=== PATIENT | male | born 1940 | race Caucasian/White ===

== ENCOUNTER 2019-09-21 10:34 | Emergency (ER) | payer MEDICARE, SELFPAY ==
--- NOTE | ~2019-09-21 | XR_ITS ---
XR abdomen/kub 1V DATE: 09/21/2019 11:57 INDICATION: Left flank pain TECHNIQUE: AP projection, 2 views COMPARISON: 09/21/2019 CT abdomen pelvis FINDINGS: There is a small faint calcified calculus overlying the upper pole of the right kidney base d upon comparison with the current 09/21/2019 CT abdomen pelvis examination. Other urinary tract stone s are radiographically occult. The psoas shadows are intact. No visceromegaly is evident. No evidence of bowel obstruction. Diffuse idiopathic skeletal hyperostosis of the thoracolumbar spine. IMPRESSION: Faintly calcified nonobstructing upper pole right renal calculus; other renal and left ur eter vesicle junction calculi are essentially occult radiographically Reviewed, dictated and finalized at [facility]. Reviewed, dictated and finalized at [facility]. IMPRESSION: Faintly calcified nonobstructing upper pole right renal calculus; o ther renal and left ureter vesicle junction calculi are essentially occult radi ographically
--- NOTE | ~2019-09-21 | CT_ITS ---
EXAMINATION: CT abdomen pelvis wo con DATE: 09/21/2019 11:54 INDICATION: Left flank pain TECHNIQUE: Computed tomography (CT) of the abdomen and pelvis was performed without intravenous contr ast. Automated exposure control and iterative reconstruction technique were employed. Exam dose: 540 .63 mGy-cm total exam DLP. COMPARISON: 09/21/2019 KUB 01/04/2017 CT abdomen pelvis FINDINGS: There is mild discoid atelectasis and/or scarring at the lung bases. Mild cardiomegaly. No pericardial or pleural effusion. There is a moderate sized hiatal hernia. There are multiple small stones in the dependent aspect of the gallbladder. The gallbladder wall does not appear abnormally thickened. There is no pericholecystic fluid. There may be minimal pericholecy stic stranding. Consider gallbladder ultrasound for further evaluation as clinically appropriate. No bile duct or pancreatic duct dilatation. No hepatic space-occupying mass lesion is detected. Normal splenic size. No pancreatic mass lesion or calcification. No adrenal mass lesion. There are several nonobstructing upper pole right renal stones, the largest approximately 4 mm. There is a 3.5 mm nonobstructing left stone and several additional small punctate nonobstructing left kidney stones. There is a 4 mm obstructing left ureterovesical junction stone with mild left hydroureteronephrosis. No right ureteral calculus. The bilateral renal and left ureterovesical junction stones are largely radiographically very faint o r occult. There is prostate enlargement and multiple prostate calcifications. The urinary bladder is relatively evacuated; the urinary bladder wall appears mildly thickened, likely due to bladder outlet obstructi on, possibly due to in part to the evacuation. Normal caliber of the abdominal aorta. No intraperitoneal or retroperitoneal or pelvic mass lesion or adenopathy or ascites. Is evidence of bilateral inguinal herniorrhaphy. There are numerous diverticula of the sigmoid and descending colon and to a lesser extent right colon ; no CT evidence of diverticulitis. No bowel obstruction, bowel wall thickening, pneumatosis or intra peritoneal free air. There is diffuse idiopathic hyperostosis of the thoracic and lumbar spine. Diffuse osteopenia. IMPRESSION: 4 mm obstructing left ureterovesical junction calculus with mild left hydroureteronephro sis Bilateral nonobstructive nephrolithiasis Diverticulosis of left and right colon Moderate sized hiatal hernia Mild cardiomegaly Cholelithiasis Reviewed, dictated and finalized at [facility]. Reviewed, dictated and finalized at [facility]. IMPRESSION: 4 mm obstructing left ureterovesical junction calculus with mild l eft hydroureteronephrosis Bilateral nonobstructive nephrolithiasis Diverticulosis of left and right colon Moderate sized hiatal hernia Mild cardiomegaly Cholelithiasis
[2019-09-21 10:39] VITALS: BP 181/93; PULSE 60; RESP 18; TEMP 36.7; O2SAT 100
--- NOTE | 2019-09-21 10:47 | ED.ABDPAIN ---
HPI - Abdominal Pain General Chief Complaint: Abdominal Pain Stated Complaint: lt flank pain Time Seen by Provider: 09/21/19 10:39 Source: patient Mode of arrival: ambulatory Limitations: no limitations History of Present Illness HPI narrative: This patient is an 79 year old male who presents for evaluation of left flank pain. He states he woke up with pain to left back at 430 am this morning. He states his pain has been constant and he is having associated nausea and vomiting. He has been having frequent urge to urinate. HE denies hematuria or darker urine. He has been talking to his friends and he states his pain seems similar to his friends with kidney stones. He denies history of kidney stone. He does reports history of PE 2 years ago and he takes a daily baby aspirin. Related Data Allergies Allergy/AdvReac Type Severity Reaction Status Date / Time amoxicillin Allergy Mild Nausea and Verified 09/21/19 10:45 Vomiting clavulanic acid Allergy Mild Nausea and Verified 09/21/19 10:45 Vomiting Review of Systems Review of Systems: All systems reviewed & are unremarkable except as noted in HPI and below Constitutional: Constitutional: Denies chills and Denies fever(s) Gastrointestinal: Gastrointestinal: Reports abdominal pain, Denies constipation, Denies diarrhea, Reports nausea and Reports vomiting Genitourinary: Genitourinary: Denies hematuria, Denies dysuria and Denies urinary frequency Musculoskeletal: Musculoskeletal: Reports back pain PMFSH Past Medical History Medical History (Updated 09/21/19 @ 13:47 by Karyna Hawthorne MD) Hyperlipidemia Surgical History Surgical History (Updated 09/21/19 @ 10:47 by Karyna Hawthorne MD) H/O hernia repair History of bilateral knee replacement History of tonsillectomy Social History Social History (Updated 09/21/19 @ 10:48 by Karyna Hawthorne MD) Smoking status: Former smoker Alcohol intake: current Alcohol use details: occasional Substance use: never Exam Narrative: Exam Narrative: GENERAL: Well-appearing, well-nourished, and in no acute distress. HEAD: Normocephalic, atraumatic EYES: PERRLA and EOMI, conjunctiva clear without discharge THROAT:Mucous membranes moist, Oropharynx normal without erythema, exudate, peritonsillar swelling or fluctuance NECK: Supple, without lymphadenopathy or mass RESPIRATORY: No respiratory distress, Airway patent, Respirations non-labored, Clear to auscultation without rales, rhonchi or wheeze HEART: Regular rate and rhythm. No murmur heard. Normal peripheral pulses. ABDOMEN: Soft, nontender, nondistended, normal active bowel sounds. No masses. No rebound or guarding, No organomegaly. EXTREMITIES: No edema, normal strength with full range of motion. SKIN: Warm, dry, normal color without rash NEURO: Alert and oriented x3. CN 2-12 grossly intact. No focal deficits. PSYCH: Normal mood and affect. Course Reevaluation(s) Reevaluation #1: I Discussed with patient and labs and CT. He states his pain has almost gone. He was given discharge instructions. Date: 09/21/19 Time: 13:45 Vital Signs Vital signs: Vital Signs Temperature 98.0 F 09/21/19 10:39 Pulse Rate 60 09/21/19 10:39 Respiratory Rate 18 09/21/19 10:39 Blood Pressure 181/93 H 09/21/19 10:39 Pulse Oximetry 100 09/21/19 10:39 Temperature 98.0 F 09/21/19 10:39 Pulse Rate 61 09/21/19 13:56 Respiratory Rate 18 09/21/19 13:56 Blood Pressure 154/80 H 09/21/19 13:56 Pulse Oximetry 100 09/21/19 13:56 MDM - Abdominal Pain Lab Data Attestation: I reviewed the patient's lab results. Result diagrams: 09/21/19 10:53 09/21/19 10:53 Labs: Lab Results 09/21/19 09/21/19 09/21/19 Range/Units 10:53 10:53 11:29 WBC 4.9 (4.5-10.0) K/mm3 RBC 4.51 L (4.6-6.20) M/mm3 Hgb 14.1 (14.0-18.0) g/dL Hct 42.8 (42.0-52.0) % MCV 94.9 (80-100) fl MCH 31.3
[2019-09-21] MEDS: SODIUM CHLORIDE 0.9% IV 500 ML 999 ML IV CONT (10:59)
[2019-09-21 11:11] LABS: Basophils Absolute Auto 0.1 K/mm3 (0.0-0.1); Basophils Percent Auto 1.2 % (0.2-1.2); Eosinophils Absolute Auto 0.2 K/mm3 (0-0.3); Eosinophils Percent Auto 3.9 % (0-4.4); Hematocrit 42.8 % (42.0-52.0); Hemoglobin 14.1 g/dL (14.0-18.0); Immature Granulocyte Absolute 0.02 K/mm3 (0.00-0.031); Immature Granulocyte Percent A 0.4 % (0-0.5); Lymphocytes Absolute Auto 0.75 K/mm3 (0.9-3.2); Lymphocytes Percent Auto 15.2 % (18.3-44.2); Mean Corpuscular HGB Conc 32.9 g/dl (32-36); Mean Corpuscular Hemoglobin 31.3 pg (26-34); Mean Corpuscular Volume 94.9 fl (80-100); Mean Platelet Volume 9.9 fl (7.4-10.4); Monocytes Absolute Auto 0.5 K/mm3 (0.1-0.6); Neutrophils Absolute Auto 3.4 K/mm3 (1.3-6.7); Neutrophils Percent Auto 69.3 % (45.5-73.1); Platelet Count Result 162 k/mm3 (150-375); Red Blood Count 4.51 M/mm3 (4.6-6.20); Red Cell Distribution Width 13.7 % (11.5-14.5); White Blood Count 4.9 K/mm3 (4.5-10.0)
[2019-09-21 11:38] LABS: Alanine Aminotransferase 15 U/L (4-50); Albumin Level 4.1 g/dL (3.5-5.1); Alkaline Phosphatase 62 U/L (38-126); Anion Gap 13.4 mmol/L (7-16); Aspartate Amino Transferase 19 U/L (17-59); Bilirubin,Total 0.5 mg/dL (0.2-1.3); Blood Urea Nitrogen 17 mg/dL (9-20); Calcium 8.6 mg/dL (8.4-10.2); Carbon Dioxide 23 mmol/L (22-30); Chloride 107 mmol/L (98-107); Estimated CRCL calculation 52 ml/min; Estimated Glomerular Filt Rate 58; Glucose 132 mg/dL (75-110); Lipase 34 U/L (23-300); Potassium 4.4 mmol/L (3.4-5.0); Sodium 139 mmol/L (137-145)
[2019-09-21 11:44] LABS: Add Urine Microscopic? YES; Appearance Urine Clear (Clear); Bilirubin Urine Negative (Negative); Blood Urine 3+ (Negative); Color Urine Yellow (Yellow); Glucose Urine UA Negative (Negative); Ketones Urine Negative (Negative); Leukocyte Esterase Ur Negative LEU/UL (Negative); Mucus Urine Rare /lpf; Nitrate Urine Negative (Negative); Protein Urine 2+ mg/dL (Negative); RBC Urine 21-50 /hpf (0-2); Squamous Epithelial Cell Urine Rare /hpf (Few)
[2019-09-21 11:45] LABS: Specific Grav Ur 1.032 (1.001-1.035)
[2019-09-21 12:21] VITALS: BP 176/95; PULSE 52; RESP 18; O2SAT 100
[2019-09-21] MEDS: TAMSULOSIN HCL 0.4 MG CAPSULE PO (12:49)
[2019-09-21] MEDS: KETOROLAC 30 MG/ML VIAL (*BKC) IV PUSH (12:49)
[2019-09-21 13:56] VITALS: BP 154/80; PULSE 61; RESP 18; O2SAT 100
== END 2019-09-21 13:58 | disposition home or self-care (01) ==
PROVIDERS: Emergency Provider General Practice; PCP Internal Medicine
DX: N13.2 Hydronephrosis with renal and ureteral calculous obstruction (principal); K80.20 Calculus of gallbladder without cholecystitis without obstruction; E78.5 Hyperlipidemia, unspecified; Z96.653 Presence of artificial knee joint, bilateral; Z87.891 Personal history of nicotine dependence; K57.90 Diverticulosis of intestine, part unspecified, without perforation or abscess without bleeding; I51.7 Cardiomegaly; K44.9 Diaphragmatic hernia without obstruction or gangrene
CPT/HCPCS: 36415; 74018; 74176; 80053; 81001; 83690; 85025; 96361; 96374; 99284; A9270; J1885; J7040

== ENCOUNTER → 2020-11-21 08:01 | Outpatient (CLI) | payer MEDICARE, SELFPAY ==
--- NOTE | ~2020-11-21 | MR_ITS ---
EXAMINATION: MR lumbar spine wo con EXAM DATE: 11/21/2020 08:41 INDICATION: Radiculopathy lumbar region. Lbp s/p twisting inj playing golf x 1 mo. TECHNIQUE: Multi-sequential, multiplanar MR images of the lumbar spine were obtained without contrast . Sagittal T1, T2, T2 fat saturation images. Axial T2 weighted images. Comparison is made to prior examination from 07/10/2011. FINDINGS: Mild to moderate disc disease from T11 through L5. Bridging endplate osteophytes from L4 th rough the lower thoracic spine or higher. The conus medullaris terminates at the L1/2 level and has n ormal signal intensity and morphology. Mild to moderate loss of the L2 vertebral body height, mild d iffuse loss of the other vertebral body heights. Mild edema at the inferior endplate on the left side of L2 vertebral body could indicate that this mild to moderate compression fracture has acute or sub acute component. There is 2-3 mm anterolisthesis L4 on L5. No spondylolysis suspected. 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 Level by level evaluation: T11-12: This level is fused. Facet arthropathy: Fused. Neural foraminal stenosis: No stenosis. Central canal stenosis: No stenosis. T12-L1: Partially fused Facet arthropathy: Partially fused. Neural foraminal stenosis: Mild left. Central canal stenosis: No stenosis. L1-L2: There is a mild to moderate diffuse disc bulge. Facet arthropathy: Moderate . Ligamentum flavum enlargement. Neural foraminal stenosis: Mild to moderate left, mild right. Central canal stenosis: Mild. L2-L3: There is a mild to moderate diffuse disc bulge. Facet arthropathy: Moderate to severe . Ligamentum flavum enlargement. Neural foraminal stenosis: Mild to moderate left. Central canal stenosis: Mild. L3-L4: There is a mild to moderate diffuse disc bulge. Facet arthropathy: Moderate to severe. Neural foraminal stenosis: Moderate left, mild to moderate right. Central canal stenosis: Mild. L4-L5: There is a moderate diffuse disc bulge. Facet arthropathy: Severe . Ligamentum flavum enlargement. Neural foraminal stenosis: Moderate to severe bilateral. Central canal stenosis: Severe. L5-S1: There is a mild to moderate diffuse disc bulge. Facet arthropathy: Severe. Neural foraminal stenosis: Moderate right, mild to moderate left. Central canal stenosis: Mild to moderate. Progression in the lumbar spondylosis compared to 2012. IMPRESSION: 1. L2 mild to moderate compression fracture, could have acute or subacute component given edema. 2. L4-5 grade 1 anterolisthesis, severe central canal stenosis. Less spondylosis other levels. 3. Right paraspinal complex cystic appearing mass with interval decrease in size. Would favor periph eral nerve sheath tumor or other benign histology. Reviewed, dictated and finalized at [facility]. IMPRESSION: 1. L2 mild to moderate compression fracture, could have acute or subacute comp onent given edema. 2. L4-5 grade 1 anterolisthesis, severe central canal stenosis. Less spondylos is other levels. 3. Right paraspinal complex cystic appearing mass with interval decrease in si ze. 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
== END ==
PROVIDERS: PCP Internal Medicine; Visit Provider Nurse Practitioner Adult Health
DX: M54.16 Radiculopathy, lumbar region (principal)
CPT/HCPCS: 72148

== ENCOUNTER 2020-12-11 00:32 | Day surgery (SDC) | payer MEDICARE, SELFPAY ==
[2020-11-26 13:16] VITALS: BMI 32.1
--- NOTE | 2020-12-10 15:18 | PM.HPGS ---
History of Present Illness History of Present Illness Consent: Risks, benefits, and alternatives have been discussed and questions answered. Patient agrees to proceed with procedure. Chief complaint: hx of colon polyps Narrative: Sulaiman Gonzales is a 80 year old male referred for colon cancer screening. He has a history of polyps Review of Systems Review of Systems: All systems reviewed & are unremarkable except as noted in HPI and below PMFSH Past Medical History Medical History Hyperlipidemia Surgical History Surgical History H/O hernia repair History of bilateral knee replacement History of tonsillectomy Family History Family History Mother Breast cancer Father Heart disease Sibling Hypertension Sibling Hypertension Social History Social History Years smoked: 7 Smoking status: Former smoker Tobacco type: cigarettes Alcohol intake: current Drinks per week: 2 Alcohol use details: occasional Substance use: never Substance use type: does not use Living arrangements: with family Gender identity (if verbalized by the patient): Male Sexual Orientation (if Verbalized by the Patient): Straight or Heterosexual Spiritual care concerns: No Meds Home Medications and Allergies Home Medications Medication Instructions Recorded Confirmed Type aspirin 81 mg tablet,delayed 81 mg PO DAILY 04/02/20 11/26/20 History release atorvastatin 10 mg tablet 10 mg PO DAILY 04/02/20 11/26/20 History folic acid 1 mg tablet 1 mg PO DAILY 04/02/20 11/26/20 History omeprazole 20 mg capsule,delayed 20 mg PO DAILY 04/02/20 11/26/20 History release tamsulosin 0.4 mg capsule 0.4 mg PO BID 04/02/20 11/26/20 History finasteride [Proscar] 5 mg PO DAILY 11/26/20 11/26/20 History Allergies Allergy/AdvReac Type Severity Reaction Status Date / Time amoxicillin Allergy Mild Nausea and Verified 12/11/20 11:53 Vomiting clavulanic acid Allergy Mild Nausea and Verified 12/11/20 11:53 Vomiting Exam Resp: Auscultation: clear to auscultation bilaterally Cardio: Rate: regular rate Rhythm: regular rhythm GI: GI Palp: Yes Soft to palpation and No Tenderness to palpation present (GI) Assessment and Plan Assessment and plan (1) Colon cancer screening: Code(s): Z12.11 - Encounter for screening for malignant neoplasm of colon Status: Acute Assessment and Plan: Colonoscopy with possible biopsy or polypectomy or cautery or injection of substances.
[2020-12-11 11:54] VITALS: BP 141/83; PULSE 59; RESP 20; TEMP 36.1; O2SAT 99
[2020-12-11] MEDS: LACTATED RINGERS 1,000 ML 150 ML IV CONT (12:08)
--- NOTE | 2020-12-11 12:20 | WPDANESEPPF ---
Anes - Initial Pre Proc Eval Procedure: Operation Date: 12/11/20 13:00 Proposed Procedures p Screening Colonoscopy - Glenroy Jaime MD Date/Time: 12/11/20 12:20 Surgeon: Glenroy Jaime MD Pre Op Diagnosis: hx of colon polyps Patient Data Age: 80 Gender: M Height: 1.78 m Weight: 100.4 kg Last Vital Signs Temp 36.1 C L 12/11/20 11:54 Pulse 59 L 12/11/20 11:54 Resp 20 12/11/20 11:54 BP 141/83 H 12/11/20 11:54 Pulse Ox 99 12/11/20 11:54 Allergies Allergy/AdvReac Type Severity Reaction Status Date / Time amoxicillin Allergy Mild Nausea and Verified 12/11/20 11:53 Vomiting clavulanic acid Allergy Mild Nausea and Verified 12/11/20 11:53 Vomiting Home Medications Medication Instructions Recorded Confirmed Type aspirin 81 mg tablet,delayed 81 mg PO DAILY 04/02/20 11/26/20 History release atorvastatin 10 mg tablet 10 mg PO DAILY 04/02/20 11/26/20 History folic acid 1 mg tablet 1 mg PO DAILY 04/02/20 11/26/20 History omeprazole 20 mg capsule,delayed 20 mg PO DAILY 04/02/20 11/26/20 History release tamsulosin 0.4 mg capsule 0.4 mg PO BID 04/02/20 11/26/20 History finasteride [Proscar] 5 mg PO DAILY 11/26/20 11/26/20 History Patient hx anesthesia problems: none Family hx anesthesia problems: none Results Review: All pre-operative results and documents have been reviewed as part of the pre-operative evaluation. [facility] Past Medical History Medical History (Updated 12/11/20 @ 12:20 by Tiago Huff MD) Hyperlipidemia Obesity Surgical History Surgical History H/O hernia repair History of bilateral knee replacement History of tonsillectomy Family History Family History Mother Breast cancer Father Heart disease Sibling Hypertension Sibling Hypertension Social History Social History Years smoked: 7 Smoking status: Former smoker Tobacco type: cigarettes Alcohol intake: current Drinks per week: 2 Alcohol use details: occasional Substance use: never Substance use type: does not use Living arrangements: with family Gender identity (if verbalized by the patient): Male Sexual Orientation (if Verbalized by the Patient): Straight or Heterosexual Spiritual care concerns: No Anes - Eval Final PreProcedure Day of Procedure 12/11/20 12:20 Patient weight: obese Heart: regular rate and rhythm Lungs: clear to auscultation Airway: Mallampati scale class II Neurological: alert and oriented Last oral intake: >/= 8 hours ASA classification: III Emergent: no Anesthetic plan: proceed Anesthesia type and monitoring: general GIVS and standard monitoring Results Review: All pre-operative results and documents have been reviewed as part of the pre-operative evaluation. Informed Consent: The patient's anesthetic plan and its attendant risks and benefits were discussed with the patient/family/POA. Questions were solicited and answers provided to the satisfaction of the patient/family/POA.
[2020-12-11 12:53] VITALS: BP 121/66; PULSE 67; RESP 16; O2SAT 98
[2020-12-11 13:03] VITALS: BP 129/91; PULSE 78; RESP 18; O2SAT 99
[2020-12-11 13:13] VITALS: BP 131/85; PULSE 61; RESP 13; O2SAT 98
== END 2020-12-11 13:30 | disposition home or self-care (01) ==
PROVIDERS: PCP Internal Medicine; Visit Provider Internal Medicine Gastroenterology
PROC: 0DJD8ZZ Inspection of Lower Intestinal Tract, Via Natural or Artificial Opening Endoscopic (ICD-10-PCS; CPT 45378; principal; 2020-12-11 13:00)
DX: Z12.11 Encounter for screening for malignant neoplasm of colon (principal); K57.30 Diverticulosis of large intestine without perforation or abscess without bleeding; Z86.010 Personal history of colon polyps; Z79.82 Long term (current) use of aspirin; E78.5 Hyperlipidemia, unspecified; Z87.891 Personal history of nicotine dependence; E66.9 Obesity, unspecified; Z68.31 Body mass index [BMI] 31.0-31.9, adult
CPT/HCPCS: G0105; J2001; J2704; J7120

== ENCOUNTER → 2021-05-10 11:35 | Outpatient (CLI) | payer MEDICARE, SELFPAY ==
--- NOTE | ~2021-05-10 | XR_ITS ---
XR thoracic spine 2V DATE: 05/10/2021 12:03 INDICATION: Thoracic back pain TECHNIQUE: AP, lateral, swimmer views COMPARISON: 09/21/2019 CT abdomen pelvis 11/21/2020 MRI lumbar spine 05/10/2021 lumbar spine FINDINGS: There is diffuse osteopenia. Prominent diffuse idiopathic skeletal hyperostosis. No thoracic spine fracture or bone destruction is evident. The thoracic pedicles appear intact. No pa raspinal soft tissue thickening. IMPRESSION: Diffuse idiopathic skeletal hyperostosis Osteopenia Reviewed, dictated and finalized at [facility].
--- NOTE | ~2021-05-10 | XR_ITS ---
XR lumbar spine 2-3V DATE: 05/10/2021 12:03 INDICATION: Lumbar radiculopathy TECHNIQUE: AP, lateral and coned lateral lumbosacral standing views COMPARISON: 11/21/2020 MRI lumbar spine FINDINGS: Diffuse osteopenia. Diffuse idiopathic skeletal hyperostosis of the thoracic and lumbar spine. Status post vertebroplasty and mild compression fracture of L2. Minimal grade 1 anterolisthesis at L4-5 due to degenerative change at the apophyseal joints. There is mild to moderate degenerative disc disease of the lumbar spine. IMPRESSION: Status post vertebroplasty and mild compression fracture of L2 Diffuse idiopathic skeletal hyperostosis of the thoracic and lumbar spine Mild to moderate degenerative disc disease of the lumbar spine Degenerative changes of apophyseal joints with associated grade 1 anterolisthesis at L4-5 Reviewed, dictated and finalized at [facility]. IMPRESSION: Status post vertebroplasty and mild compression fracture of L2 Diffuse idiopathic skeletal hyperostosis of the thoracic and lumbar spine Mild to moderate degenerative disc disease of the lumbar spine Degenerative changes of apophyseal joints with associated grade 1 anterolisthes is at L4-5
== END ==
PROVIDERS: Visit Provider Nurse Practitioner Adult Health
DX: M54.6 Pain in thoracic spine (principal); Z98.890 Other specified postprocedural states; M48.56XA Collapsed vertebra, not elsewhere classified, lumbar region, initial encounter for fracture; M48.14 Ankylosing hyperostosis [Forestier], thoracic region; M51.36 Other intervertebral disc degeneration, lumbar region; M43.16 Spondylolisthesis, lumbar region; M85.88 Other specified disorders of bone density and structure, other site
CPT/HCPCS: 72070; 72100

== ENCOUNTER 2021-05-31 07:52 | Outpatient (CLI) | payer MEDICARE, SELFPAY ==
--- NOTE | 2021-05-31 08:00 | ECG_ITS ---
Measurements Intervals [place] Rate: 64 P: 9 UT: 193 QRS: -26 QRSD: 96 T: 31 QT: 404 QTc: 418 Interpretive Statements SINUS RHYTHM LEFTWARD AXIS LOW QRS VOLTAGE IN PRECORDIAL LEADS Electronically Signed On 05-31-2021 14:31:00 CDT by Jose Solano M.D.
[2021-05-31 09:59] LABS: Hematocrit 42.4 % (42.0-52.0); Hemoglobin 13.6 g/dL (14.0-18.0)
[2021-05-31 10:04] LABS: INR 1.1; Prothrombin Time 13.3 Seconds (11.1-14.7)
[2021-05-31 10:05] LABS: Partial Thromboplastin Time 28.1 SECONDS (22.3-36.8)
== END 2021-05-31 07:53 | disposition home or self-care (01) ==
LOC: ANHSURGERY 07:56
PROVIDERS: Anesthesiology; PCP Internal Medicine; Visit Provider Urology
DX: Z01.818 Encounter for other preprocedural examination (principal); E78.5 Hyperlipidemia, unspecified; D69.9 Hemorrhagic condition, unspecified
CPT/HCPCS: 36415; 85014; 85018; 85610; 85730; 93005

== ENCOUNTER 2021-06-03 00:47 | Day surgery (SDC) | payer MEDICARE, SELFPAY ==
[2021-05-18 13:12] VITALS: BMI 32.1
--- NOTE | 2021-05-18 13:27 | PC.NURSE ---
Report to the Outpatient Waiting Room, entrance under the green pavilion located off [facility], at time __7:45AM on date __06/03/21 . OR Time: ___9:45AM . - You and your visitor will be asked a series of questions to screen for COVID 19 for your protection. - A mask is required within the hospital. Preoperative COVID Testing Requirements: No COVID Test needed if: (proof is required; if not received patient will have Rapid Test prior to entry) - Patient has received COVID Vaccine at least 14 days prior to procedure date or - Patient has positive COVID test result within last 90 days of surgery date. COVID Test needed if above criteria is not met If not COVID vaccinated a COVID test must be conducted within 72 hours of surgery and patient is asked to isolate self from time of testing until procedure. You will go to the [facility] for your COVID testing. The [facility] site is located at the corner of [address] from [facility]. You will only be called if COVID results are positive and your surgeon may reschedule your elective surgery date. Patients may have clear liquids (water, carbonated beverages, clear teas, apple juice) until 3 hours prior to surgery with a maximum of 20 ounces. - No food from midnight until time of surgery - Infants may have breast milk until 4 hours before surgery, infant formula 6 hours prior to surgery. - Children will be allowed to drink immediately following surgery. If applicable, please bring a bottle or sippy cup to assist with drinking. Juice, water, soda, and popsicles are readily available. For infants on formula, please bring formula the day of surgery. Pacifiers are allowed. Take the following medications with a SIP of water the morning of surgery: __NONE Medications to discontinue per physician __HOLD ALL VITAMINS/SUPPLEMENT AND ASPIRIN 7 DAYS PRE-OP Date to take last dose 05/27/21 Please no make-up, nail georgian, hairspray, perfume, deodorant, or body powder the day of surgery. No jewelry (including any body piercings) or valuables the day of surgery, leave them at home. Please take a shower or bath the night before, or the morning of, surgery with an antibacterial soap. Wear comfortable, loose fitting clothing. Children are encouraged to wear pajamas. - Jewelry must be removed prior to entering the operating room. Rings and piercings that are not removed may be cut off. - The hospital will not accept responsibility for valuables. - Please leave all valuables, including medications, at home the day of surgery. If you are going home after surgery, a licensed double bottom driver must drive you home. - NO public transportation without another adult. - We recommend that an adult stay with you for 24 hours following discharge. - We also recommend that you do not drive, make important decision, drink alcoholic beverages, or take any drugs that were not prescribed by your health care provider for at least 24 hours after your discharge time. For Pediatric surgeries, we recommend two adults accompany the child home (only one inside the building at this time). One visitor will be allowed to accompany the patient into the hospital. Patients visitor will be instructed to remain with patient at all times or leave the building. We will allow the visitor to come back to the postoperative area when patient is ready. Follow any additional instructions given to you from your surgeon. Telephone instructions given to __PATIENT and asked if any additional questions and then verbalized understanding. Patient advised to call surgeon office or pre surgery nurse liaison [phone] if any additional questions.
--- NOTE | 2021-06-01 07:36 | PM.IMHP ---
H&P: HPI History of Present Illness Date/Time: 06/01/21 07:36 Patient is an 81-year-old gentleman who has been in our practice Since 2014. He is known to have outlet obstructive voiding symptoms secondary to BPH. Initially, he did with tamsulosin has progressive difficulty over the past 12 months. We have trialed finasteride and he had an adverse reaction. After discussion of therapeutic options including invasive procedures for BPH he has elected for a TURP. He is aware of the risk of this including, but not limited to, persistent irritable and/or obstructive voiding symptoms, hematuria, retrograde ejaculation and urinary incontinence. Chief Complaint: Difficulty urinating Review of Systems Cardiovascular: Cardiovascular: Denies chest pain, Denies lightheadedness, Denies palpitations and Denies dyspnea Respiratory: Respiratory: Denies dyspnea Gastrointestinal: Gastrointestinal: Denies diarrhea, Denies nausea and Denies vomiting Genitourinary: Genitourinary: Denies hematuria and Denies dysuria Endocrine: Endocrine: Denies palpitations PMFSH Past Medical History Medical History Hyperlipidemia Obesity Surgical History Surgical History H/O hernia repair History of bilateral knee replacement History of tonsillectomy Family History Family History Mother Breast cancer Father Heart disease Sibling Hypertension Sibling Hypertension Social History Social History Smoking packs per day: 0.5 Smoking cigarettes per day: 10.0 Years smoked: 7 Smoking pack-years: 3.50 Smoking status: Former smoker Tobacco type: cigarettes Smoking end date: 08/28/1955 Alcohol intake: current Drinks per week: 3 Alcohol use details: occasional Substance use: never Substance use type: does not use Additional living arrangements comments: Gender identity (if verbalized by the patient): Male Sexual Orientation (if Verbalized by the Patient): Straight or Heterosexual Spiritual care concerns: No Meds Home Medications and Allergies Home Medications Medication Instructions Recorded Confirmed Type aspirin 81 mg tablet,delayed 81 mg PO DAILY 04/02/20 05/18/21 History release atorvastatin 10 mg tablet 10 mg PO DAILY 04/02/20 05/18/21 History folic acid 1 mg tablet 1 mg PO DAILY 04/02/20 05/18/21 History omeprazole 20 mg capsule,delayed 20 mg PO HS 04/02/20 05/18/21 History release tamsulosin 0.4 mg capsule 0.4 mg PO BID 04/02/20 05/18/21 History cholecalciferol (vitamin D3) 50 mcg PO DAILY 05/18/21 05/18/21 History vitamin E 200 unit PO DAILY 05/18/21 05/18/21 History Allergies Allergy/AdvReac Type Severity Reaction Status Date / Time clavulanic acid Allergy Mild Nausea and Verified 05/18/21 13:06 Vomiting Exam Const: General: no acute distress Resp: Effort & Inspection: normal respiratory effort GI: Inspection: non-distended GI Palp: No abdominal tenderness and No Guarding due to palpation present (GI) Auscultation: normal bowel sounds Assessment and Plan Assessment and plan (1) BPH loc w urin obs/LUTS: Code(s): N40.1 - Benign prostatic hyperplasia with lower urinary tract symptoms Status: Acute Assessment and Plan: TURP
[2021-06-03] VITALS (17 sets, daily range): BP systolic 115–149; BP diastolic 72–87; PULSE 46–69; RESP 12–18; TEMP 36.2–37.1; O2SAT 97–100
--- NOTE | 2021-06-03 06:59 | WPDHPUPDATE1 ---
History and Physical Update Update Date/Time: 06/03/21 06:59 History and Physical has been reviewed, including an updated exam of the patient. There are NO changes in the patient's condition. Risks, benefits, and alternatives have been discussed and questions answered. Patient agrees to proceed with procedure.
[2021-06-03] MEDS: LACTATED RINGERS 1,000 ML 30 ML IV CONT (07:00)
--- NOTE | 2021-06-03 07:28 | P.PNAN_ITS ---
Anes - Initial Pre Proc Eval Procedure: Operation Date: 06/03/21 08:15 Proposed Procedures p Trans Urethral Resection Prostate - Daniel Colón MD Date/Time: 06/03/21 07:28 Surgeon: Daniel Colón MD Pre Op Diagnosis: BPH Patient Data Age: 81 Gender: M Height: 1.77 m Weight: 100 kg Allergies Allergy/AdvReac Type Severity Reaction Status Date / Time clavulanic acid Allergy Mild Nausea and Verified 05/18/21 13:06 Vomiting Home Medications Medication Instructions Recorded Confirmed Type aspirin 81 mg tablet,delayed 81 mg PO DAILY 04/02/20 05/18/21 History release atorvastatin 10 mg tablet 10 mg PO DAILY 04/02/20 05/18/21 History folic acid 1 mg tablet 1 mg PO DAILY 04/02/20 05/18/21 History omeprazole 20 mg capsule,delayed 20 mg PO HS 04/02/20 05/18/21 History release tamsulosin 0.4 mg capsule 0.4 mg PO BID 04/02/20 05/18/21 History cholecalciferol (vitamin D3) 50 mcg PO DAILY 05/18/21 05/18/21 History vitamin E 200 unit PO DAILY 05/18/21 05/18/21 History Patient hx anesthesia problems: none Family hx anesthesia problems: none Results Review: All pre-operative results and documents have been reviewed as part of the pre-operative evaluation. [facility] Past Medical History Medical History Hyperlipidemia Obesity Surgical History Surgical History H/O hernia repair History of bilateral knee replacement History of tonsillectomy Family History Family History Mother Breast cancer Father Heart disease Sibling Hypertension Sibling Hypertension Social History Social History Smoking packs per day: 0.5 Smoking cigarettes per day: 10.0 Years smoked: 7 Smoking pack-years: 3.50 Smoking status: Former smoker Tobacco type: cigarettes Smoking end date: 08/28/1955 Alcohol intake: current Drinks per week: 3 Alcohol use details: occasional Substance use: never Substance use type: does not use Living arrangements: with family Additional living arrangements comments: Gender identity (if verbalized by the patient): Male Sexual Orientation (if Verbalized by the Patient): Straight or Heterosexual Spiritual care concerns: No Anes - Eval Final PreProcedure Day of Procedure 06/03/21 07:28 Patient weight: obese Heart: regular rate and rhythm Lungs: clear to auscultation Airway: Mallampati scale class II Neurological: alert and oriented Last oral intake: >/= 8 hours ASA classification: III Emergent: no Anesthetic plan: proceed Anesthesia type and monitoring: general LMA and standard monitoring Results Review: All pre-operative results and documents have been reviewed as part of the pre-operative evaluation. Informed Consent: The patient's anesthetic plan and its attendant risks and benefits were discussed with the patient/family/POA. Questions were solicited and answers provided to the satisfaction of the patient/family/POA.
[2021-06-03] MEDS: ceFAZolin 2 GM/D5W 50 ML 2 GM/50 ML BAG IVPB (07:56)
[2021-06-03] MEDS: LIDOCAINE HCL 2% GEL UROJET 10 ML PKG MUCOUS MEM (08:47)
--- NOTE | 2021-06-03 08:53 | P.OP_ITS ---
Procedure Note - Detailed Date of Procedure 06/03/21 Pre-op Diagnosis BPH Post-op Diagnosis Same Procedure Performed TURP Surgeon Daniel Colón MD Anesthesia General Description of Procedure The patient was brought to the operative suite where he is prepped and draped in routine sterile fashion while in the dorsal lithotomy position after the uneventful induction of a general LMA anesthetic. A 27 [place] resectoscope sheath was placed into his bladder. He had no urethral strictures. The patient had [trilobar/bilobar] hyperplasia with a moderate median lobe. The bladder itself was endoscopically normal, showing no mucosal hyperemia, intravesical neoplasm or foreign bodies. There was a single, orthotopic ureteral orifice bilaterally. These orifices were identified and preserved throughout the remainder of the procedure. Attention was first turned to resection of the median lobe. This resection was undertaken from the bladder neck to the verumontanum and carried out until the transverse fibers of the bladder neck were identified. The left lateral lobe was then resected starting at the 6 o'clock position, working counter clockwise to the 12 o'clock position. Again, resection was carried out from the bladder neck to the verumontanum until the capsular fibers of the prostate were identif ied. The right lateral lobe was resected in a similar fashion starting at the 6 o'clock position working clockwise to the 12 o'clock position and carried out until the capsular fibers of the prostate were identified. Apical tissue was then circumferentially resected. All chips were evacuated from the bladder using an Nu-Med Plus evacuator. Hemostasis was obtained with electric cautery. The ureteral orifices were again inspected and found to be without injury. Estimated blood loss throughout this procedure was 75cc. The patient was taken to recovery room having tolerated this well. Estimated Blood Loss 75 Drains Yes Packing No Pathology Yes Complications No immediate complications Condition Stable Disposition PACU
[2021-06-03] MEDS: fentaNYL CITRATE INJ (*CRX) 100 MCG/2 ML VIAL 25 MCG IV PUSH ×4 (09:00→09:20)
--- NOTE | 2021-06-03 11:16 | ADMGEN ---
This patient, Sulaiman Gonzales, was admitted to 2 Medical Room 250-01. Patient/family oriented to hospital policies and general routines including ID bracelet, bed and alarms, visiting hours, pain management, procedures, bathroom and other care routines, personal items, smoking policy, room service/diet, and visiting hours. Report taken from PACU (Dinorah). Information on how to activate the Rapid Response Team has been discussed. Patient/Family are encouraged to report perceived risks to care and to ask questions if they do not understand what they are told or what they should do.
[2021-06-03] MEDS: HYDROcodone/acetaminophen (*CRX) 5-325 MG TABLET 1 TAB PO ×3 (11:52→22:46)
[2021-06-03] MEDS: DEXTROSE 5%/LACTATED RINGERS 1,000 ML 125 ML IV CONT (11:52)
[2021-06-03] MEDS: DOCUSATE SODIUM 100 MG CAPSULE PO ×2 (11:52→17:24)
[2021-06-03] MEDS: FOLIC ACID 1 MG TABLET PO (12:48)
[2021-06-03] MEDS: ATORVASTATIN 10 MG TABLET PO (12:48)
[2021-06-03] MEDS: LIDOCAINE 5% PATCH 1 PATCH TRANSDERM (15:43)
[2021-06-03] MEDS: HYOSCYAMINE SULFATE 0.125 MG TABLET SUBLINGUAL (20:03)
[2021-06-03] MEDS: PANTOPRAZOLE 40 MG TABLET PO (20:03)
[2021-06-04 00:38] VITALS: BP 104/51; PULSE 54; RESP 20; TEMP 36.5; O2SAT 98
[2021-06-04 05:13] VITALS: BP 112/58; PULSE 55; RESP 18; TEMP 36.6; O2SAT 99
[2021-06-04 05:21] LABS: Hematocrit 38.4 % (42.0-52.0); Hemoglobin 12.5 g/dL (14.0-18.0)
[2021-06-04 05:41] LABS: Anion Gap 4 mmol/L (8-16); Blood Urea Nitrogen 16 mg/dL (9-20); Calcium 8.2 mg/dL (8.4-10.2); Carbon Dioxide 26 mmol/L (22-30); Chloride 108 mmol/L (98-107); Estimated CRCL calculation 65 ml/min; Estimated Glomerular Filt Rate > 60; Glucose 110 mg/dL (65-110); Sodium 138 mmol/L (137-145)
--- NOTE | 2021-06-04 07:26 | WPDUROPN2 ---
Progress Note: A&P Assessment and Plan (1) BPH loc w urin obs/LUTS: Code(s): N40.1 - Benign prostatic hyperplasia with lower urinary tract symptoms Status: Acute Assessment and Plan: Doing well POD #1 TURP Stop CBI now and voiding trial later this morning. Subjective Subjective Date/Time Seen: 06/04/21 07:26 Comfortable, minimal catheter discomfort Review of Systems Cardiovascular: Cardiovascular: Denies chest pain, Denies lightheadedness, Denies palpitations and Denies dyspnea Respiratory: Respiratory: Denies dyspnea Gastrointestinal: Gastrointestinal: Denies diarrhea, Denies nausea and Denies vomiting Genitourinary: Genitourinary: Denies hematuria and Denies dysuria Endocrine: Endocrine: Denies palpitations Exam Const: General: no acute distress Resp: Effort & Inspection: normal respiratory effort GI: Inspection: non-distended GI Palp: No abdominal tenderness and No Guarding due to palpation present (GI) Auscultation: normal bowel sounds Objective Data Vital Signs Vital Signs: Vital Signs - 24 hr 06/03/21 07:39 06/03/21 08:52 06/03/21 09:05 Temperature 98.1 F 97.8 F Pulse Rate 62 66 53 L Respiratory Rate 16 16 14 Blood Pressure 144/87 H 142/84 H 137/77 Pulse Oximetry 97 99 100 06/03/21 09:15 06/03/21 09:30 06/03/21 09:45 Temperature Pulse Rate 56 L 52 L 48 L Respiratory Rate 12 12 12 Blood Pressure 135/76 127/78 137/78 Pulse Oximetry 98 98 98 06/03/21 10:00 06/03/21 10:14 06/03/21 10:30 Temperature Pulse Rate 48 L 48 L 48 L Respiratory Rate 12 14 12 Blood Pressure 137/78 128/78 143/77 H Pulse Oximetry 99 99 99 06/03/21 10:40 06/03/21 11:17 06/03/21 11:30 Temperature 97.1 F L 97.5 F L Pulse Rate 46 L 50 L 54 L Respiratory Rate 12 14 16 Blood Pressure 149/85 H 137/78 130/77 Pulse Oximetry 98 98 100 06/03/21 12:00 06/03/21 13:00 06/03/21 18:00 Temperature 97.2 F L 97.7 F 98.5 F Pulse Rate 60 69 66 Respiratory Rate 16 16 16 Blood Pressure 147/80 H 133/81 132/77 Pulse Oximetry 100 99 97 06/03/21 19:34 06/03/21 20:00 06/04/21 00:38 Temperature 98.8 F 97.7 F Pulse Rate 63 63 54 L Respiratory Rate 18 18 20 Blood Pressure 115/72 104/51 L Pulse Oximetry 100 100 98 06/04/21 05:13 Temperature 98 F Pulse Rate 55 L Respiratory Rate 18 Blood Pressure 112/58 L Pulse Oximetry 99 Intake/Output Intake/Output: Intake & Output 06/01/21 06/02/21 06/03/21 06/04/21 23:59 23:59 23:59 23:59 Intake Total 1470 7140 Output Total 9550 2250 Balance -8080 4890 Meds/Results Medications: Active Medications Generic Name Dose Route Start Last Admin Trade Name Freq PRN Reason Stop Dose Admin Hydrocodone Bitart/Acetaminophen 1 tab 06/03/21 10:45 06/03/21 22:46 Hydrocodone/Acetaminophen (*Crx) 5-325 Mg Tablet PO 1 tab Q4H PRN Administration Pain Rated 1-6 Atorvastatin Calcium 10 mg 06/03/21 10:45 06/03/21 12:48 Atorvastatin 10 Mg Tablet PO 10 mg DAILY ELAINE Administration Cephalexin HCl 500 mg 06/04/21 09:00 Cephalexin 500 Mg Capsule PO QID ELAINE Docusate Sodium 100 mg 06/03/21 10:45 06/03/21 17:24 Docusate Sodium 100 Mg Capsule PO 100 mg BID ELAINE Administration Fentanyl Citrate 25 mcg 06/03/21 07:28 06/03/21 09:20 Fentanyl Citrate Inj (*Crx) 100 Mcg/2 Ml Vial IV PUSH 25 mcg Q2M PRN Administration Pain Folic Acid 1 mg 06/03/21 10:45 06/03/21 12:48 Folic Acid 1 Mg Tablet PO 1 mg DAILY ELAINE Administration Hyoscyamine 0.125 mg 06/03/21 10:45 06/03/21 20:03 Hyoscyamine Sulfate 0.125 Mg Tablet SUBLINGUAL 0.125 mg Q6H PRN Administration Bladder Spasm Lactated Ringer's 1,000 mls @ 30 mls/hr 06/03/21 07:10 06/03/21 10:45 Lr - Lactated Ringers Iv IV CONT Infused .Q24H ELAINE Infusion Lactated Ringer's 1,000 mls @ 30 mls/hr 06/03/21 07:30 06/03/21 11:51 Lr - Lactated Ringers Iv IV CONT Not Given .Q24H ELAINE Lidocaine 1 patch 06/03
[2021-06-04] MEDS: LIDOCAINE 5% PATCH 1 PATCH TRANSDERM (08:31)
[2021-06-04] MEDS: FOLIC ACID 1 MG TABLET PO (08:31)
[2021-06-04] MEDS: ATORVASTATIN 10 MG TABLET PO (08:31)
[2021-06-04] MEDS: CEPHALEXIN 500 MG CAPSULE PO ×3 (08:31→16:21)
[2021-06-04] MEDS: DOCUSATE SODIUM 100 MG CAPSULE PO ×2 (08:31→16:21)
[2021-06-04 10:25] VITALS: BP 115/56; PULSE 58; RESP 18; TEMP 36.4; O2SAT 99
[2021-06-04] MEDS: HYDROcodone/acetaminophen (*CRX) 5-325 MG TABLET 1 TAB PO (12:36)
[2021-06-04 14:00] VITALS: BP 152/82; PULSE 56; RESP 18; TEMP 36.3; O2SAT 100
--- NOTE | 2021-06-04 15:02 | WPDANESPN ---
Anes - Prog Note Post-Op Date/Time: 06/04/21 15:02 Cardiovascular status: normal Respiratory status: normal Airway patency: baseline Mental status: baseline Post-Op hydration status: normal Vital Signs: Last Vital Signs Temp 97.3 F L 06/04/21 14:00 Pulse 56 L 06/04/21 14:00 Resp 18 06/04/21 14:00 BP 152/82 H 06/04/21 14:00 Pulse Ox 100 06/04/21 14:00 Pain Score (VAS): 0 I/O: Intake & Output 06/03/21 06/04/21 06/04/21 23:59 07:59 15:59 Intake Total 490 7140 540 Output Total 4250 2250 Balance -3760 4890 540 Laboratory Tests 06/04/21 04:55 06/04/21 04:55 06/04/21 06/04/21 04:55 04:55 Hgb 12.5 L Hct 38.4 L Sodium 138 Potassium 4.0 Chloride 108 H Carbon Dioxide 26 Anion Gap 4 L BUN 16 Creatinine 0.90 Estim Creat Clear Calc 65 Estimated GFR > 60 Glucose 110 Calcium 8.2 L Post-procedural complaints: other (urinary retention) Patient Feedback: Patient satisfied with anesthetic care.
--- NOTE | 2021-06-04 16:51 | P.DS_ITS ---
DS: Admitting Diagnosis Discharge Date 06/04/2021 Admitting Diagnosis BPH DS: Discharge Diagnosis Discharge Diagnosis (1) BPH loc w urin obs/LUTS: Code(s): N40.1 - Benign prostatic hyperplasia with lower urinary tract symptoms Status: Acute DS: Summary Hospital Course Hospital Course: This patient with longstanding prostatism refractory for medical management was admitted on the morning of his planned TURP. The procedure was undertaken on that same day in an uneventful fashion. His post- operative course was, likewise, uneventful. On the evening of the procedure he was tolerating a diet. On POD#1 his urine was clear on CBI. The urine remained clear and, therefore, the catheter was removed late morning. Subsequent to catheter removal he voided only small amounts on 3 occasions. Bladder scan was only 300 cc but we opted to replace the catheter and sent home for a voiding trial early next week. At discharge he was comfortable and tolerating a diet. Time Spent with Patient Time attestation: Total time spent providing and/or coordinating discharge services: 20 min. Exam Const: General: no acute distress Resp: Effort & Inspection: normal respiratory effort GI: Inspection: non-distended GI Palp: No abdominal tenderness and No Guarding due to palpation present (GI) Auscultation: normal bowel sounds DS: Data Data Completed and Pending Pending studies at discharge: Pending at discharge 06/03/21 08:42 Surgical [PTH] Routine Labs on day of discharge: Labs from last 24 hours 06/04/21 06/04/21 04:55 04:55 Hgb 12.5 L Hct 38.4 L Sodium 138 Potassium 4.0 Chloride 108 H Carbon Dioxide 26 Anion Gap 4 L BUN 16 Creatinine 0.90 Estim Creat Clear Calc 65 Estimated GFR > 60 Glucose 110 Calcium 8.2 L Discharge Plan Discharge Patient Disposition: Home, Self-Care Discharge Instructions: 1) Activity: No lifting/straining >15lbs. x2 weeks. 2) Diet: Resume normal pre-admission diet. 3) [place] catheter to leg bag / large bag at night 4) F/U Monday [id number] for catheter removal Stand Alone Forms: General Discharge Instructions Discharge Orders: Discharge Order (Routine); Ordered 06/04/21 Ordered By: Daniel Colón Discharge Medications: New hydrocodone-acetaminophen 5-325 mg tablet 1 - 2 tablet PO Q6H PRN (Reason: pain) Qty: 20 RF: 0 docusate sodium [Colace] 100 mg capsule 100 mg PO DAILY Qty: 30 RF: 0 sulfamethoxazole-trimethoprim 800-160 mg tablet 1 tablet PO Q12H Qty: 6 RF: 0 Continued omeprazole 20 mg capsule,delayed release(DR/EC) 20 mg PO HS RF: 0 atorvastatin 10 mg tablet 10 mg PO DAILY RF: 0 folic acid 1 mg tablet 1 mg PO DAILY RF: 0 cholecalciferol (vitamin D3) 50 mcg (2,000 unit) Capsule 50 mcg PO DAILY RF: 0 Held aspirin [Adult Aspirin Regimen] 81 mg tablet,delayed release (DR/EC) 81 mg PO DAILY RF: 0 Hold Instructions: Resume on 06/09/21. vitamin E 200 unit Capsule 200 unit PO DAILY RF: 0 Hold Instructions: Resume on 06/09/21. Discontinued tamsulosin 0.4 mg capsule 0.4 mg PO BID RF: 0
== END 2021-06-04 17:35 | disposition home or self-care (01) ==
LOC: ANHSURGERY 07:15 → ANH2MED 10:51
PROVIDERS: PCP Internal Medicine; Visit Provider Urology
PROC: 0VT08ZZ Resection of Prostate, Via Natural or Artificial Opening Endoscopic (ICD-10-PCS; CPT 52601; principal; 2021-06-03 08:15)
DX: N40.1 Benign prostatic hyperplasia with lower urinary tract symptoms (principal); N13.9 Obstructive and reflux uropathy, unspecified; E78.5 Hyperlipidemia, unspecified; E66.9 Obesity, unspecified; Z68.32 Body mass index [BMI] 32.0-32.9, adult; Z87.891 Personal history of nicotine dependence; Z79.82 Long term (current) use of aspirin
CPT/HCPCS: 52601; 36415; 80048; 85014; 85018; 85610; 85730; 88305; 93005; A9270; C1757; J0690; J2405; J2704; J3010; J7120; J7121